=== PATIENT | female | born 1985 | race Caucasian/White ===

== ENCOUNTER 2023-10-13 07:53 | Emergency (ER) | payer OTHER, SELFPAY ==
[2023-10-13 08:03] VITALS: BP 115/71
--- NOTE | 2023-10-13 08:28 | ED.SKININJ ---
HPI-Injury
General
Chief Complaint: Eye Problems
Source: patient
Exam Limitations: none
Time Seen by Provider: 10/13/23 08:18
Travel History
Have you had any contact with someone who has COVID-19?: No
Do you have any symptoms of coronavirus? Fever > 100 degrees, chills, cough, shortness of breath, sore throat, loss of taste or smell, muscle aches, or headache?: No
History of Present Illness-Injury
Initial Injury comments:
38-year-old female presents complaining of worsening redness swelling and pain to the right upper eyelid starting about 3 days ago. She is healthy otherwise. She has been using warm compresses however symptoms are worsening. She is concerned
about a cellulitis. No other complaints at this time. She denies any vision change.
Phy Exam
Physical Exam
Physical Exam:
General: Well-appearing female no acute respiratory distress
HEENT: Normocephalic right upper eyelid erythematous and focalized over the base of the eyelash. Eversion of the eyelid shows no obvious papule. There is a mild amount of swelling of the upper eyelid underneath the eyebrow. There is no
periorbital swelling. There is no proptosis. No pain with eye motion. Sclera is white no conjunctival injection no drainage.
Skin: No fluctuance or induration
Course
Vital Signs
Initial and Last Documented VS:
Initial Vital Signs
Temp Pulse Resp BP Pulse Ox
97.6 F 62 16 115/71 98
10/13/23 08:03 10/13/23 08:03 10/13/23 08:03 10/13/23 08:03 10/13/23 08:03
Last Documented Vital Signs
Temp Pulse Resp BP Pulse Ox
97.6 F 62 16 115/71 98
10/13/23 08:03 10/13/23 08:03 10/13/23 08:03 10/13/23 08:03 10/13/23 08:03
MDM/Problems Addressed
Differential Diagnosis Includes:
Redness swelling to the upper lid likely a stye. Will advise continued warm compresses. Will cover with Keflex for potential early cellulitis however do not think this is likely. Stable for discharge
*Critical Care Note
Total Time (30-74mins, 75-104mins- exclusive of procedures): Not Applicable
ED Attending Note
-
Portions of this chart may have been created with voice recognition software.� Occasional wrong word or��sound alike� substitutions may have occurred due to the inherent limitations of voice recognition software.
Discharge Plan
Departure
Patient Disposition: Home (Routine Discharge)
Date of Disposition: 10/13/23
Time of Disposition: 08:29
Patient with high blood pressure during this ER visit?: No
Discharge Problem:
Hordeolum externum (stye)
Instructions: Cellulitis around the eye, Stye (DC)
Prescriptions:
New
cephalexin 500 mg capsule
500 mg PO TID 7 Days Qty: 21 0RF
Activity Restrictions/Additional Instructions:
Continue with warm compresses. Use antibiotic as directed. Please return here for worsening symptoms
Interventions
Interventions:
*ED COVID-19 Vaccine History Last Done: 10/13/23 08:03
Discharge Date and Time
Print Language: DIVEHI
== END 2023-10-13 09:18 | disposition home or self-care (01) ==
LOC: EMR 07:53
PROVIDERS: EMERGENCY PHYSICIAN Emergency Medicine; FAMILY PHYSICIAN Family Medicine
DX: H00.011 Hordeolum externum right upper eyelid (principal)
CPT/HCPCS: 99282

== ENCOUNTER → 2024-04-13 18:05 | Outpatient (REF) | payer OTHER, SELFPAY | LOC: WDC 18:05 | PROVIDERS: ATTENDING PHYSICIAN Obstetrics & Gynecology Gynecology; FAMILY PHYSICIAN Family Medicine | DX: Z12.31 Encounter for screening mammogram for malignant neoplasm of breast (principal) | CPT/HCPCS: 77063; 77067 ==

== ENCOUNTER → 2025-04-14 18:06 | Outpatient (REF) | payer BC, SELFPAY | LOC: WDC 18:06 | PROVIDERS: ATTENDING PHYSICIAN Obstetrics & Gynecology Gynecology; FAMILY PHYSICIAN Family Medicine | DX: Z12.31 Encounter for screening mammogram for malignant neoplasm of breast (principal) | CPT/HCPCS: 77063; 77067 ==